=== PATIENT | female | born 1965 | race Caucasian/White ===

== ENCOUNTER 2016-09-27 09:47 | Outpatient (CLI) | payer BC ==
[2016-09-27 10:34] LABS: ALT (SGPT) 20 U/L (0-55); AST (SGOT) 23 U/L (5-34); Alkaline Phosphatase 82 U/L (40-150); Anion Gap 14 mmol/L (10-20); BUN (Urea Nitrogen) 15 mg/dL (9.8-20.1); Bilirubin, Total 0.4 mg/dL (0.2-1.2); Calc. Creatinine Clearance 0 mL/min (70-130); Calcium 9.3 mg/dL (7.8-10.44); Carbon Dioxide 26 mmol/L (22-29); Chloride 106 mmol/L (98-107); Estimated GFR-MDRD 60; Globulin 2.8 g/dL (2.4-3.5); LDL Cholesterol, Calculated 100 mg/dL
[2016-09-27 10:57] LABS: Bilirubin Negative (Negative); Blood, Urine Trace (Negative); Glucose, Urine (Dipstick) Negative (Negative); Ketone, Urine Negative (Negative); Nitrite Negative (Negative); Protein, Urine (Dipstick) Negative (Neg-Trace); Urobilinogen 0.2 mg/dL (0.2-1.0)
[2016-09-27 11:12] LABS: Bacteria/HPF 1+ HPF (None Seen); RBC/HPF 0-3 HPF (0-3); Transitional Epithelial 0-3 HPF (0-3)
[2016-09-27 11:34] LABS: #Basophils 0.1 thou/uL (0.0-0.2); #Eosinphils 0.6 thou/uL (0.0-0.7); #Monocytes 0.6 thou/uL (0.11-0.59); #Neutrophils 4.7 thou/uL (1.40-6.50); %Basophils 1.5 % (0.0-1.0); %Eosinophils 6.9 % (0.0-10.0); Hematocrit 43.1 % (36.0-47.0); Mean Platelet Volume 5.6 fL (7.4-10.4); Red Blood Cell (RBC) Count 4.74 mill/uL (4.20-5.40); White Blood Cell (WBC) Count 8.1 thou/uL (4.8-10.8)
== END 2016-09-27 09:48 | disposition home or self-care (01) ==
LOC: HPCALD 09:47
PROVIDERS: ATTEND Family Medicine
DX: E03.9 Hypothyroidism, unspecified (principal); I10 Essential (primary) hypertension
CPT/HCPCS: 36415; 80053; 80061; 81001; 84439; 84443; 85025

== ENCOUNTER 2016-11-07 16:03 | Outpatient (CLI) | payer BC ==
[2016-11-07 16:48] LABS: Free T4 (Free Thyroxine) 0.66 ng/dL (0.70-1.48); Thyroid Stimulating Hormone 1.1015 uIU/mL (0.35-4.94)
== END 2016-11-07 16:04 ==
LOC: HPCALD 16:03
PROVIDERS: ATTEND Family Medicine
DX: E03.9 Hypothyroidism, unspecified (principal)
CPT/HCPCS: 36415; 84439; 84443

== ENCOUNTER 2017-05-10 10:19 | Outpatient (CLI) | payer BC ==
[2017-05-10 13:27] LABS: Free T4 (Free Thyroxine) 0.67 ng/dL (0.70-1.48); Thyroid Stimulating Hormone 1.6328 uIU/mL (0.35-4.94)
== END 2017-05-10 10:20 | disposition home or self-care (01) ==
LOC: HPCALD 10:19
PROVIDERS: ATTEND Family Medicine
DX: E03.9 Hypothyroidism, unspecified (principal); N95.1 Menopausal and female climacteric states; R23.2 Flushing
CPT/HCPCS: 36415; 82670; 83001; 84439; 84443

== ENCOUNTER 2017-05-17 14:00 | Outpatient (CLI) | payer BC ==
--- NOTE | 2017-05-17 20:02 | RAD ---
RIGHT WRIST THREE VIEWS: 05/17/17 No acute fracture or dislocation was seen. Arthritic changes are seen in the first carpometacarpal j oint consisting of some joint space narrowing and osteophytes. There might have been an old injury a t the base of the first metacarpal. The carpal relations are otherwise normal. IMPRESSION: No acute findings. Arthritic changes at the first carpometacarpal joint. POS: HOME
== END 2017-05-17 14:01 | disposition home or self-care (01) ==
LOC: BURRAD 14:00
PROVIDERS: ATTEND Family Medicine
DX: M25.531 Pain in right wrist (principal); M19.031 Primary osteoarthritis, right wrist

== ENCOUNTER 2019-07-09 14:20 | Outpatient (CLI) | payer BC ==
--- NOTE | 2019-07-09 14:58 | RAD ---
CERVICAL SPINE FIVE VIEWS: 07/09/2019 COMPARISON: 01/06/2016 FINDINGS: There has been prior anterior cervical fusion of C4 through C7. The synthetic disk spacers are in goo d position. No fracture or soft tissue swelling is present. There may be the most minimal of disc s pace narrowing at C3-C4, however, the finding is equivocal, at best. IMPRESSION: Stable exam showing no adverse change since the 2016 study. POS: HOME
== END 2019-07-09 14:21 | disposition home or self-care (01) ==
LOC: BURRAD 14:20
PROVIDERS: ATTEND Family Medicine
DX: M50.30 Other cervical disc degeneration, unspecified cervical region (principal)
CPT/HCPCS: 72050